=== PATIENT | female | born 1940 | race Caucasian/White ===

== ENCOUNTER → 2017-04-19 | Day surgery (SDC) | payer MEDICARE, OTHER ==
[~2017-04-19] VITALS: Ht 160 cm; Wt 67.1 kg
[~2017-04-19] MED LIST: ASPIRIN LITE C325 MG PO; ATIVAN0.5 MG PO; CITALOPRAM HYDR40 MG PO; Carafate1 GM PO; ESOMEPRAZOLE MA40 M1 PO; HYDROCHLOROTHIA25 M1 PO; METFORMIN HCL500 MG PO; OGEN PO; PHARMASSURE FO0.8 MG PO; POTASSIUM CHLO10 ME5 PO; PRAVASTATIN SOD40 MG PO; REMERON15 M2 PO; VITAMIN C500 M1 PO; VITAMIN D32000 UNIT PO
--- NOTE | ~2017-04-19 | O ---
[place], [place] OPERATIVE NOTE NAME: ADINA GARCIA UNIT #: [id number] ROOM: DOCTOR: SAUL RUTHERFORD MD BIRTHDATE: [birth year] DOS: 04/19/2017 PREOPERATIVE DIAGNOSIS: Cataract, left eye. POSTOPERATIVE DIAGNOSIS: Cataract, left eye. OPERATION: Extracapsular cataract extraction by phacoemulsification with posterior chamber intraocular lens implantation, left eye. ANESTHESIA: Monitored standby. OPERATIVE FINDINGS AND PROCEDURE: 2% Xylocaine topical anesthetic gel was applied to the eye in the preop area. The patient was taken to the operating room and prepped and draped in the standard fashion for sterile intraocular surgery. A time out procedure was performed verifying correct patient, correct site and corrects lens with Bernadette Rutherford M.D. The operating microscope was swung into position and the lid speculum was inserted. The eye was inspected and there was found to be a large 3-4 mm central corneal epithelial abrasion. Using a Nohemy paracentesis blade, a paracentesis was made through clear cornea. Viscoelastic was used to fill the anterior chamber. Using a metal keratome a 2.4 mm self-sealing clear corneal cataract incision was made temporally at the limbus. Using a pre-bent 25 gauge cystotome needle, a standard continuous curvilinear capsulorrhexis was performed. The anterior capsule was removed with forceps. The lens nucleus was hydrodissected and phacoemulsified in the posterior chamber. Cortical material was removed with the irrigation aspiration hand piece and the posterior capsule was then polished with a curet under irrigation. The posterior chamber and capsular bag were filled with viscoelastic. A posterior chamber intraocular lens manufactured by: [employer], Model #[id number], and 19.5 diopters in strength were then inserted into the posterior chamber and within the capsular bag using the lens cartridge and injector system. Viscoelastic was removed using the irrigation aspiration handpiece. The anterior chamber was filled with balanced salt solution through the paracentesis. Both the paracentesis site and cataract incisions were hydrated with BSS and verified to be water-tight and self-sealing. Cefuroxime 1 mg/0.1 mL was injected into the anterior chamber through the paracentesis site. The incision checked to be water-tight using a Weck-Jackelyn sponge. The integrity of the cataract wound and ocular tension were checked. The lid speculum and drapes were removed. Maxitrol ointment was applied to the eye. A pressure patch and eye shield were taped over the eye. The patient was transported from the operating room to the recovery room in satisfactory condition [place], [place] OPERATIVE NOTE NAME: ADINA GARCIA UNIT #: [id number] ROOM: DOCTOR: SAUL RUTHERFORD MD BIRTHDATE: [birth year] SAUL RUTHERFORD MD CM:OPRECORD:OPERATIVE NOTE [id number] SAUL RUTHERFORD MD 04/19/17 1259 interface
[2017-04-19 07:17] VITALS: BP 176/56
[2017-04-19 08:30] VITALS: BP 138/66
[2017-04-19 08:45] VITALS: BP 145/60
[2017-04-19 08:58] VITALS: BP 164/72
== END | disposition home or self-care (01) ==
LOC: SDC 03-16 09:30
DX: H26.9 Unspecified cataract (principal); I10 Essential (primary) hypertension; E78.00 Pure hypercholesterolemia, unspecified; E11.9 Type 2 diabetes mellitus without complications; F32.9 Major depressive disorder, single episode, unspecified; Z87.81 Personal history of (healed) traumatic fracture; K21.9 Gastro-esophageal reflux disease without esophagitis; F41.9 Anxiety disorder, unspecified; Z87.891 Personal history of nicotine dependence; Z90.710 Acquired absence of both cervix and uterus; Z98.890 Other specified postprocedural states; Z82.49 Family history of ischemic heart disease and other diseases of the circulatory system

== ENCOUNTER → 2017-04-25 | Outpatient (CLI) | payer MEDICARE, OTHER ==
[2017-04-25 09:20] LABS: BASO % 0.5 % (0.0-1.0); EOS # 0.2 10*3/uL (0.0-0.4); EOS % 2.7 % (1.0-4.0); HEMATOCRIT 35.9 % (37.0-47.0); HEMOGLOBIN 11.2 g/dl (12.0-16.0); LYMPH # 2.1 10*3/uL (1.3-4.4); LYMPH % 27.9 % (27.0-41.0); MEAN CELL VOLUME 85.3 fl (81.0-99.0); MEAN CORPUSCULAR HGB 26.6 pg (27.0-31.0); MEAN CORPUSCULAR HGB CONC 31.2 g/dl (33.0-37.0); MEAN PLATELET VOLUME 10.3 fl (9.6-12.3); MONO # 0.6 10*3/uL (0.1-1.0); MONO % 7.8 % (3.0-9.0); NEUT # 4.7 10*3/uL (2.3-7.9); NEUT % 60.8 % (47.0-73.0); PLATELET COUNT AUTOMATED 331 10*3/uL (130-400); RED BLOOD COUNT 4.21 10*6/uL (4.10-5.10); RED CELL DISTRI WIDTH 14.9 % (0-14.5); WHITE BLOOD COUNT 7.7 10*3/uL (4.8-10.8)
[2017-04-26 07:06] LABS: RHEUMATOID ARTHRITIS FACTOR <10.0 IU/mL (0.0-13.9)
[2017-04-26 10:09] LABS: ANTI-RNP ANTIBODIES <0.2 AI (0.0-0.9); ANTI-SMITH ANTIBODIES <0.2 AI (0.0-0.9)
[2017-04-26 14:11] LABS: LYME AB/TOTAL IMMUNOGLOBULINS <0.91 ISR (0.00-0.90)
[2017-04-27 00:09] LABS: PTT-LA 36.2 sec (0.0-51.9)
[2017-04-27 11:07] LABS: LUPUS REFLEX INTERPRETATION Comment: (.)
== END ==
LOC: LAB 08:49
PROVIDERS: Orthopaedic Surgery
DX: E53.8 Deficiency of other specified B group vitamins (principal); M25.50 Pain in unspecified joint

== ENCOUNTER → 2017-06-21 | Day surgery (SDC) | payer MEDICARE, OTHER ==
[~2017-06-21] VITALS: Ht 160 cm; Wt 63.5 kg
[~2017-06-21] MED LIST changes: +NEURONTIN300 MG PO
--- NOTE | ~2017-06-21 | O ---
[place], [place] OPERATIVE NOTE NAME: ADINA GARCIA UNIT #: [id number] ROOM: DOCTOR: SAUL RUTHERFORD MD BIRTHDATE: [birth year] DOS: 06/21/2017 PREOPERATIVE DIAGNOSIS: Cataract, right eye. POSTOPERATIVE DIAGNOSIS: Cataract, right eye. OPERATION: Extracapsular cataract extraction by phacoemulsification with posterior chamber intraocular lens implantation, right eye. ANESTHESIA: Monitored standby. OPERATIVE FINDINGS AND PROCEDURE: 2% Xylocaine topical anesthetic gel was applied to the eye in the preop area. The patient was taken to the operating room and prepped and draped in the standard fashion for sterile intraocular surgery. A time out procedure was performed verifying correct patient, correct site and corrects lens with Bernadette Rutherford M.D. The operating microscope was swung into position and the lid speculum was inserted. Using a Nohemy paracentesis blade, a paracentesis was made through clear cornea. Viscoelastic was used to fill the anterior chamber. Using a metal keratome a 2.4 mm self-sealing clear corneal cataract incision was made temporally at the limbus. Using a pre-bent 25 gauge cystotome needle, a standard continuous curvilinear capsulorrhexis was performed. The anterior capsule was removed with forceps. The lens nucleus was hydrodissected and phacoemulsified in the posterior chamber. Cortical material was removed with the irrigation aspiration hand piece and the posterior capsule was then polished with a curet under irrigation. The posterior chamber and capsular bag were filled with viscoelastic. A posterior chamber intraocular lens manufactured by: [employer], Model #[id number] and 17.0 diopters in strength were then inserted into the posterior chamber and within the capsular bag using the lens cartridge and injector system. Viscoelastic was removed using the irrigation aspiration handpiece. The anterior chamber was filled with balanced salt solution through the paracentesis. Both the paracentesis site and cataract incisions were hydrated with BSS and verified to be water-tight and self-sealing. Cefuroxime 1 mg/0.1 mL was injected into the anterior chamber through the paracentesis site. The incision checked to be water-tight using a Weck-Jackelyn sponge. The integrity of the cataract wound and ocular tension were checked. Lid speculum and drapes were removed. The patient was transferred from the operating room to the recovery room in satisfactory condition. [place], [place] OPERATIVE NOTE NAME: ADINA GARCIA UNIT #: [id number] ROOM: DOCTOR: KRISH MONAHAN,SAUL BIRTHDATE: [birth year] SAUL RUTHERFORD MD CM:OPRECORD:OPERATIVE NOTE [id number] SAUL RUTHERFORD MD 06/21/17 1201 interface
[2017-06-21 07:00] VITALS: BP 139/55
[2017-06-21 08:31] VITALS: BP 146/54
[2017-06-21 08:45] VITALS: BP 130/57
[2017-06-21 09:00] VITALS: BP 145/64
== END | disposition home or self-care (01) ==
LOC: SDC 06-14 08:45
DX: E11.36 Type 2 diabetes mellitus with diabetic cataract (principal); I10 Essential (primary) hypertension; K21.9 Gastro-esophageal reflux disease without esophagitis; F41.9 Anxiety disorder, unspecified; F32.9 Major depressive disorder, single episode, unspecified; Z90.710 Acquired absence of both cervix and uterus; Z98.890 Other specified postprocedural states; Z82.49 Family history of ischemic heart disease and other diseases of the circulatory system; Z87.891 Personal history of nicotine dependence; Z88.5 Allergy status to narcotic agent; Z88.8 Allergy status to other drugs, medicaments and biological substances

== ENCOUNTER 2020-03-07 13:33 | Emergency (ER) | payer MEDICARE, OTHER ==
[~2020-03-07] VITALS: Ht 160 cm; Wt 68.0 kg
[2020-03-07] MEDS ORDERED: AUGMENTIN 875875 MG PO (16:04)
== END 2020-03-07 16:24 | disposition home or self-care (01) ==
LOC: ED 13:33
DX: Z88.5 Allergy status to narcotic agent (principal); Z79.899 Other long term (current) drug therapy; Z79.84 Long term (current) use of oral hypoglycemic drugs; S02.2XXA Fracture of nasal bones, initial encounter for closed fracture; S05.12XA Contusion of eyeball and orbital tissues, left eye, initial encounter; I10 Essential (primary) hypertension; E11.9 Type 2 diabetes mellitus without complications; K21.9 Gastro-esophageal reflux disease without esophagitis; F32.9 Major depressive disorder, single episode, unspecified; Z79.82 Long term (current) use of aspirin; W19.XXXA Unspecified fall, initial encounter; Y93.89 Activity, other specified; Y92.89 Other specified places as the place of occurrence of the external cause; Y99.8 Other external cause status

== ENCOUNTER 2020-05-22 12:43 | Inpatient (IN) | payer MEDICARE, OTHER ==
[~2020-05-22] VITALS: Ht 160 cm; Wt 68.9 kg
[~2020-05-22 12:43] MED LIST changes: +AUGMENTIN 875875 MG PO; -METFORMIN HCL500 MG PO; +METFORMIN850 MG PO
[2020-05-22 12:47] VITALS: BP 115/67
[2020-05-22 14:07] LABS: BASO # 0.1 10*3/uL (0.0-0.1); BASO % 0.3 % (0.0-1.0); EOS # 0.2 10*3/uL (0.0-0.4); EOS % 0.9 % (1.0-4.0); HEMATOCRIT 40.8 % (37.0-47.0); LYMPH # 1.8 10*3/uL (1.3-4.4); MEAN CELL VOLUME 94.7 fl (81.0-99.0); MEAN CORPUSCULAR HGB 29.7 pg (27.0-31.0); MEAN CORPUSCULAR HGB CONC 31.4 g/dl (33.0-37.0); MEAN PLATELET VOLUME 10.3 fl (9.6-12.3); MONO # 1.1 10*3/uL (0.1-1.0); MONO % 6.6 % (3.0-9.0); NEUT # 13.3 10*3/uL (2.3-7.9); NEUT % 80.4 % (47.0-73.0); PLATELET COUNT AUTOMATED 242 10*3/uL (130-400); RED BLOOD COUNT 4.31 10*6/uL (4.10-5.10); WHITE BLOOD COUNT 16.6 10*3/uL (4.8-10.8)
[2020-05-22 14:17] LABS: ACT PARTIAL THROMBO TIME 27.9 SECONDS (20.0-32.1); INTERNATIONAL NORM RATIO 1.1 (2.0-3.5)
[2020-05-22 14:24] LABS: ALBUMIN 3.6 gm/dl (3.1-4.5); ALKALINE PHOSPHATASE 84 U/L (45-117); BUN 11 mg/dl (7-24); CHLORIDE 100 mmol/L (98-107); CREATININE 0.79 mg/dL (0.55-1.02); LIPASE 88 U/L (73-393); SGOT/AST 18 IU/L (3-35); SGPT/ALT 23 U/L (12-78); SODIUM 136 mmol/L (136-145); TOTAL PROTEIN 7.3 gm/dL (6.4-8.2)
[2020-05-22 14:31] LABS: TROPONIN I < 0.015 ng/ml (<0.045)
[2020-05-22 15:34] VITALS: BP 119/42
[2020-05-22] MEDS ORDERED: MYRBETRIQ50 M1 PO (17:09)
[2020-05-22] MEDS ORDERED: JANUVIA100 MG PO (17:10)
[2020-05-22] MEDS ORDERED: ACTIGALL300 MG PO (17:10)
[2020-05-22 17:13] LABS: BILIRUBIN NEGATIVE; BLOOD NEGATIVE (NEGATIVE); CLARITY CLEAR (CLEAR); COLOR YELLOW (YELLOW); GLUCOSE TRACE; KETONE NEGATIVE; SPECIFIC GRAVITY 1.015 (1.001-1.030)
[2020-05-22 17:14] LABS: LEUKO ESTERASE 1+ (NEGATIVE); NITRITE NEGATIVE (NEGATIVE)
[2020-05-22 17:31] LABS: BACTERIA 1+; WBC 16-20 wbc/hpf (0-5)
[2020-05-22 18:00] VITALS: BP 140/54
[2020-05-22 20:00] VITALS: BP 119/55
[2020-05-23] VITALS (10 sets, daily range): BP systolic 108–179; BP diastolic 33–64
[2020-05-23 06:05] LABS: BASO % 0.2 % (0.0-1.0); EOS # 0.2 10*3/uL (0.0-0.4); EOS % 1.4 % (1.0-4.0); HEMATOCRIT 30.8 % (37.0-47.0); LYMPH # 2.5 10*3/uL (1.3-4.4); LYMPH % 22.9 % (27.0-41.0); MEAN CELL VOLUME 92.2 fl (81.0-99.0); MEAN CORPUSCULAR HGB 29.6 pg (27.0-31.0); MEAN CORPUSCULAR HGB CONC 32.1 g/dl (33.0-37.0); MEAN PLATELET VOLUME 10.4 fl (9.6-12.3); MONO # 1.1 10*3/uL (0.1-1.0); MONO % 10.2 % (3.0-9.0); NEUT % 64.8 % (47.0-73.0); PLATELET COUNT AUTOMATED 227 10*3/uL (130-400); RED BLOOD COUNT 3.34 10*6/uL (4.10-5.10); RED CELL DISTRI WIDTH 14.5 % (0-14.5); WHITE BLOOD COUNT 10.9 10*3/uL (4.8-10.8)
[2020-05-23 06:16] LABS: ALBUMIN 3.1 gm/dl (3.1-4.5); BUN 15 mg/dl (7-24); CHLORIDE 98 mmol/L (98-107); CHOLESTEROL 156 mg/dL (<200); CREATININE 0.88 mg/dL (0.55-1.02); POTASSIUM 3.5 mmol/L (3.5-5.1); SGOT/AST 19 IU/L (3-35); SGPT/ALT 21 U/L (12-78); SODIUM 132 mmol/L (136-145); TOTAL PROTEIN 6.3 gm/dL (6.4-8.2); TRIGLYCERIDES 104 mg/dl (<150); VLDL CHOLESTEROL 21 mg/dL (6-40)
[2020-05-23 06:23] LABS: ALKALINE PHOSPHATASE 71 U/L (45-117); FREE T4 0.77 ng/dl (0.76-1.46); HDL CHOLESTEROL 67 mg/dl (40-60); LDL CHOLESTEROL 68 mg/dL (9-159)
[2020-05-23 07:25] LABS: VITAMIN D, 25-HYDROXY 44.2 ng/mL (30-100)
[2020-05-24] VITALS: BP 123/52
[2020-05-24 06:10] LABS: BASO % 0.1 % (0.0-1.0); EOS % 0.1 % (1.0-4.0); HEMATOCRIT 23.5 % (37.0-47.0); LYMPH # 1.6 10*3/uL (1.3-4.4); LYMPH % 12.2 % (27.0-41.0); MEAN CELL VOLUME 91.1 fl (81.0-99.0); MEAN CORPUSCULAR HGB 29.5 pg (27.0-31.0); MEAN CORPUSCULAR HGB CONC 32.3 g/dl (33.0-37.0); MEAN PLATELET VOLUME 10.4 fl (9.6-12.3); MONO # 1.2 10*3/uL (0.1-1.0); MONO % 8.9 % (3.0-9.0); NEUT # 10.2 10*3/uL (2.3-7.9); NEUT % 78.2 % (47.0-73.0); PLATELET COUNT AUTOMATED 170 10*3/uL (130-400); RED BLOOD COUNT 2.58 10*6/uL (4.10-5.10); RED CELL DISTRI WIDTH 13.9 % (0-14.5)
[2020-05-24 06:24] LABS: ALBUMIN 2.8 gm/dl (3.1-4.5); ALKALINE PHOSPHATASE 57 U/L (45-117); BUN 14 mg/dl (7-24); CHLORIDE 93 mmol/L (98-107); CREATININE 0.73 mg/dL (0.55-1.02); POTASSIUM 3.8 mmol/L (3.5-5.1); SGOT/AST 18 IU/L (3-35); SGPT/ALT 19 U/L (12-78); SODIUM 128 mmol/L (136-145)
[2020-05-24 08:00] VITALS: BP 140/63
[2020-05-24 12:00] VITALS: BP 127/41
[2020-05-24 16:00] VITALS: BP 139/54
[2020-05-24 20:00] VITALS: BP 133/57
[2020-05-25] VITALS: BP 123/43
[2020-05-25 07:07] LABS: BASO % 0.4 % (0.0-1.0); EOS # 0.3 10*3/uL (0.0-0.4); EOS % 2.6 % (1.0-4.0); LYMPH # 2.3 10*3/uL (1.3-4.4); LYMPH % 19.7 % (27.0-41.0); MEAN CORPUSCULAR HGB 29.1 pg (27.0-31.0); MEAN CORPUSCULAR HGB CONC 31.7 g/dl (33.0-37.0); MEAN PLATELET VOLUME 10.7 fl (9.6-12.3); MONO % 8.9 % (3.0-9.0); NEUT # 7.7 10*3/uL (2.3-7.9); NEUT % 67.4 % (47.0-73.0); PLATELET COUNT AUTOMATED 184 10*3/uL (130-400); RED BLOOD COUNT 2.61 10*6/uL (4.10-5.10); WHITE BLOOD COUNT 11.4 10*3/uL (4.8-10.8)
[2020-05-25 07:09] LABS: ALBUMIN 2.7 gm/dl (3.1-4.5); ALKALINE PHOSPHATASE 60 U/L (45-117); BUN 12 mg/dl (7-24); CHLORIDE 94 mmol/L (98-107); CREATININE 0.61 mg/dL (0.55-1.02); POTASSIUM 3.3 mmol/L (3.5-5.1); SGOT/AST 15 IU/L (3-35); SGPT/ALT 15 U/L (12-78); SODIUM 132 mmol/L (136-145); TOTAL PROTEIN 6.4 gm/dL (6.4-8.2)
[2020-05-25 08:00] VITALS: BP 120/50
[2020-05-25 12:00] VITALS: BP 133/88
[2020-05-25 16:00] VITALS: BP 153/69
[2020-05-25 20:00] VITALS: BP 127/47
[2020-05-26 07:38] LABS: BASO % 0.2 % (0.0-1.0); EOS # 0.4 10*3/uL (0.0-0.4); EOS % 3.8 % (1.0-4.0); HEMATOCRIT 22.2 % (37.0-47.0); LYMPH # 1.5 10*3/uL (1.3-4.4); LYMPH % 16.8 % (27.0-41.0); MEAN CELL VOLUME 90.6 fl (81.0-99.0); MEAN CORPUSCULAR HGB 29.8 pg (27.0-31.0); MEAN CORPUSCULAR HGB CONC 32.9 g/dl (33.0-37.0); MEAN PLATELET VOLUME 9.9 fl (9.6-12.3); MONO # 0.8 10*3/uL (0.1-1.0); MONO % 8.2 % (3.0-9.0); NEUT # 6.4 10*3/uL (2.3-7.9); NEUT % 70.5 % (47.0-73.0); NUCLEATED RED BLOOD CELL 0.4 % (0.0-0.0); PLATELET COUNT AUTOMATED 212 10*3/uL (130-400); RED BLOOD COUNT 2.45 10*6/uL (4.10-5.10); RED CELL DISTRI WIDTH 14.4 % (0-14.5); WHITE BLOOD COUNT 9.1 10*3/uL (4.8-10.8)
[2020-05-26 07:51] LABS: BUN 8 mg/dl (7-24); CHLORIDE 96 mmol/L (98-107); CREATININE 0.52 mg/dL (0.55-1.02); POTASSIUM 3.2 mmol/L (3.5-5.1); SODIUM 133 mmol/L (136-145)
[2020-05-26 08:00] VITALS: BP 133/43
[2020-05-26 12:00] VITALS: BP 127/43
[2020-05-26 16:00] VITALS: BP 140/52
[2020-05-26 20:00] VITALS: BP 137/59
[2020-05-27] VITALS: BP 158/61
[2020-05-27 07:15] LABS: BASO % 0.2 % (0.0-1.0); EOS # 0.5 10*3/uL (0.0-0.4); EOS % 5.2 % (1.0-4.0); HEMATOCRIT 24.5 % (37.0-47.0); LYMPH # 1.5 10*3/uL (1.3-4.4); LYMPH % 16.2 % (27.0-41.0); MEAN CELL VOLUME 93.2 fl (81.0-99.0); MEAN CORPUSCULAR HGB 29.3 pg (27.0-31.0); MEAN CORPUSCULAR HGB CONC 31.4 g/dl (33.0-37.0); MEAN PLATELET VOLUME 9.5 fl (9.6-12.3); MONO # 0.9 10*3/uL (0.1-1.0); MONO % 10.2 % (3.0-9.0); NEUT # 6.2 10*3/uL (2.3-7.9); NEUT % 67.4 % (47.0-73.0); NUCLEATED RED BLOOD CELL 0.1 10*3/uL (0.0-0.0); NUCLEATED RED BLOOD CELL 0.5 % (0.0-0.0); PLATELET COUNT AUTOMATED 240 10*3/uL (130-400); RED BLOOD COUNT 2.63 10*6/uL (4.10-5.10); RED CELL DISTRI WIDTH 14.6 % (0-14.5); WHITE BLOOD COUNT 9.2 10*3/uL (4.8-10.8)
[2020-05-27 08:00] VITALS: BP 150/56
[2020-05-27] MEDS ORDERED: ASPIRIN ADULT L81 M2 PO (12:51)
[2020-05-27] MEDS ORDERED: NORCO 5-325 TA1 EACH PO (12:59)
== END 2020-05-27 16:29 | disposition other institution (70) | DRG 480 ==
LOC: ED 12:43 → EDHOLD 16:21 → 5E 16:21
PROVIDERS: Internal Medicine; Nurse Practitioner Family; Student in an Organized Health Care Education/Training Program; ADMIT Emergency Medicine; ATTEND Emergency Medicine
PROC: 0QH604Z Insertion of Internal Fixation Device into Right Upper Femur, Open Approach (ICD-10-PCS; principal; 2020-05-23)
DX: S72.141A Displaced intertrochanteric fracture of right femur, initial encounter for closed fracture (principal); E43 Unspecified severe protein-calorie malnutrition; E87.2 Acidosis; R65.10 Systemic inflammatory response syndrome (SIRS) of non-infectious origin without acute organ dysfunction; S50.01XA Contusion of right elbow, initial encounter; S60.222A Contusion of left hand, initial encounter; K21.9 Gastro-esophageal reflux disease without esophagitis; E11.65 Type 2 diabetes mellitus with hyperglycemia; Z20.828 Contact with and (suspected) exposure to other viral communicable diseases; E11.42 Type 2 diabetes mellitus with diabetic polyneuropathy; F41.9 Anxiety disorder, unspecified; F32.9 Major depressive disorder, single episode, unspecified; D72.829 Elevated white blood cell count, unspecified; S50.311A Abrasion of right elbow, initial encounter; S60.512A Abrasion of left hand, initial encounter; W18.39XA Other fall on same level, initial encounter; Y93.89 Activity, other specified; Y99.8 Other external cause status; Z68.26 Body mass index [BMI] 26.0-26.9, adult; Z88.6 Allergy status to analgesic agent; Z90.710 Acquired absence of both cervix and uterus; Z82.49 Family history of ischemic heart disease and other diseases of the circulatory system; Z98.49 Cataract extraction status, unspecified eye; Y92.098 Other place in other non-institutional residence as the place of occurrence of the external cause

== ENCOUNTER → 2020-06-05 | Outpatient (CLI) | payer MEDICARE, OTHER ==
[~2020-06-05] MED LIST changes: +ACTIGALL300 MG PO; +ASPIRIN ADULT L81 M2 PO; +JANUVIA100 MG PO; +MYRBETRIQ50 M1 PO; +NORCO 5-325 TA1 EACH PO
== END | disposition home or self-care (01) ==
LOC: ORTHO 01:00
PROVIDERS: ATTEND Psychiatry & Neurology Psychiatry
DX: S72.141D Displaced intertrochanteric fracture of right femur, subsequent encounter for closed fracture with routine healing (principal); X58.XXXD Exposure to other specified factors, subsequent encounter; Z98.890 Other specified postprocedural states

== ENCOUNTER → 2020-07-20 | Outpatient (CLI) | payer MEDICARE, OTHER | END | disposition home or self-care (01) | LOC: RAD 12:42 | PROVIDERS: ATTEND Orthopaedic Surgery | DX: S72.141D Displaced intertrochanteric fracture of right femur, subsequent encounter for closed fracture with routine healing (principal); X58.XXXD Exposure to other specified factors, subsequent encounter ==

== ENCOUNTER 2020-12-21 13:49 | Emergency (ER) | payer MEDICARE, OTHER ==
[~2020-12-21] VITALS: Ht 160 cm; Wt 68.0 kg
== END 2020-12-21 16:54 | disposition home or self-care (01) ==
LOC: ED 13:49
DX: S51.012A Laceration without foreign body of left elbow, initial encounter (principal); Z88.5 Allergy status to narcotic agent; Z79.82 Long term (current) use of aspirin; Z79.899 Other long term (current) drug therapy; Z90.711 Acquired absence of uterus with remaining cervical stump; Z90.49 Acquired absence of other specified parts of digestive tract; Z98.890 Other specified postprocedural states; W22.8XXA Striking against or struck by other objects, initial encounter; Y93.89 Activity, other specified; Y92.89 Other specified places as the place of occurrence of the external cause; Y99.8 Other external cause status

== ENCOUNTER → 2021-03-29 | Outpatient (CLI) | payer MEDICARE, OTHER | END | disposition home or self-care (01) | LOC: RAD 16:09 | PROVIDERS: ATTEND Family Medicine | DX: J44.9 Chronic obstructive pulmonary disease, unspecified (principal); J98.4 Other disorders of lung ==

== ENCOUNTER 2024-07-24 15:07 | Inpatient (IN) | payer MEDICARE, OTHER ==
[~2024-07-24] VITALS: Wt 58.7 kg
[2024-07-24 15:12] VITALS: BP 149/63
[2024-07-24] MEDS ORDERED: Lactated Ringer's Solution 1,000 ML IV SCH (16:25)
[2024-07-24 17:11] LABS: ALKALINE PHOSPHATASE 104 U/L (46-116); BUN 17 mg/dl (9-23); CHLORIDE 96 mmol/L (98-107); POTASSIUM 4.4 mmol/L (3.4-5.1); SGPT/ALT 15 U/L (5-49); TOTAL PROTEIN 7.1 gm/dL (6.0-8.0)
[2024-07-24 17:24] LABS: BASO # 0.1 10*3/uL (0.0-0.1); BASO % 0.4 % (0.0-1.0); EOS # 0.3 10*3/uL (0.0-0.4); HEMATOCRIT 44.6 % (37.0-47.0); MEAN CELL VOLUME 88.1 fl (81.0-99.0); MEAN CORPUSCULAR HGB 29.1 pg (27.0-31.0); MEAN PLATELET VOLUME 8.6 fl (9.6-12.3); MONO # 1.5 10*3/uL (0.1-1.0); MONO % 10.2 % (3.0-9.0); NEUT % 70.4 % (47.0-73.0); PLATELET COUNT AUTOMATED 380 10*3/uL (130-400); RED BLOOD COUNT 5.06 10*6/uL (4.10-5.10); RED CELL DISTRI WIDTH 15.1 % (0-14.5); WHITE BLOOD COUNT 14.2 10*3/uL (4.8-10.8)
[2024-07-24 17:33] LABS: BILIRUBIN Negative (Negative); BLOOD 1+ (Negative); CLARITY Turbid (Clear); COLOR Yellow (Yellow); GLUCOSE Negative (Negative); KETONE Trace (Negative); LEUKO ESTERASE 3+ (Negative); NITRITE Positive (Negative)
[2024-07-24 17:48] LABS: BACTERIA 4+; WBC TNTC wbc/hpf (0-5)
[2024-07-24] MEDS ORDERED: Ceftriaxone Sodium 1 GM/10 ML SYR IV ONE (18:05)
[2024-07-24] MEDS ORDERED: DULOXETINE HCL60 MG PO (18:07)
[2024-07-24] MEDS ORDERED: DULOXETINE HCL30 MG PO (18:07)
[2024-07-24] MEDS ORDERED: GEMTESA75 MG PO (18:08)
[2024-07-24] MEDS ORDERED: FLUOCINOLONE AC OT (18:09)
[2024-07-24] MEDS ORDERED: MECLIZINE HCL25 M2 PO (18:11)
[2024-07-24] MEDS ORDERED: MELATONIN5 M7 PO (18:12)
[2024-07-24] MEDS ORDERED: VITAMIN C500 M8 PO (18:13)
[2024-07-24] MEDS ORDERED: MELOXICAM7.5 MG PO (18:13)
[2024-07-24] MEDS ORDERED: METOPROLOL25 MG PO (18:13)
[2024-07-24] MEDS ORDERED: NATURE'S BLEND F1 MG PO (18:13)
[2024-07-24] MEDS ORDERED: COLACE100 MG PO (18:15)
[2024-07-24] MEDS ORDERED: MILK OF MA400 MG/51 PO (18:15)
[2024-07-24] MEDS ORDERED: ACETAMINOPHEN 325 MG TAB PO PRN (19:45)
[2024-07-24] MEDS ORDERED: SODIUM CHLORIDE 0.9% 1,000 ML IV ONE (19:45)
[2024-07-24] MEDS ORDERED: Ondansetron Hydrochloride 4 MG/2 ML VIAL IV PRN (19:45)
[2024-07-24] MEDS ORDERED: Magnesium Hydroxide 30 ML UDC PO PRN (19:45)
[2024-07-24 21:03] VITALS: BP 175/68
[2024-07-24] MEDS ORDERED: Melatonin 5 MG TABLET PO PRN (21:50)
[2024-07-24] MEDS ORDERED: Metoprolol Tartrate 25 MG TAB PO SCH (22:00)
[2024-07-24 23:18] VITALS: BP 155/63
[2024-07-25 01:00] VITALS: BP 137/97
[2024-07-25] MEDS ORDERED: Piperacillin Sodium/Tazobact 50 ML IV SCH ×2 (02:13→08:00)
[2024-07-25] MEDS ORDERED: FOAM BANDAGE HEEL T ONE (02:41)
[2024-07-25] MEDS ORDERED: Pantoprazole Sodium 40 MG TAB PO SCH (06:00)
[2024-07-25 06:40] LABS: BASO # 0.1 10*3/uL (0.0-0.1); BASO % 0.5 % (0.0-1.0); EOS # 0.4 10*3/uL (0.0-0.4); HEMATOCRIT 37.8 % (37.0-47.0); MEAN CELL VOLUME 90.2 fl (81.0-99.0); MEAN CORPUSCULAR HGB 28.9 pg (27.0-31.0); MEAN PLATELET VOLUME 9.5 fl (9.6-12.3); MONO # 1.2 10*3/uL (0.1-1.0); MONO % 10.6 % (3.0-9.0); NEUT # 7.9 10*3/uL (2.3-7.9); NEUT % 68.3 % (47.0-73.0); PLATELET COUNT AUTOMATED 376 10*3/uL (130-400); RED BLOOD COUNT 4.19 10*6/uL (4.10-5.10); RED CELL DISTRI WIDTH 14.6 % (0-14.5); WHITE BLOOD COUNT 11.6 10*3/uL (4.8-10.8)
[2024-07-25 07:37] LABS: ALKALINE PHOSPHATASE 90 U/L (46-116); BUN 14 mg/dl (9-23); CHLORIDE 95 mmol/L (98-107); POTASSIUM 3.9 mmol/L (3.4-5.1); SGPT/ALT 15 U/L (5-49); TOTAL PROTEIN 6.4 gm/dL (6.0-8.0)
[2024-07-25 08:00] VITALS: BP 175/83
[2024-07-25] MEDS ORDERED: Enoxaparin Sodium 40 MG/0.4 ML SYR SC SCH (10:00)
[2024-07-25] MEDS ORDERED: FLUOCINOLONE OT SCH (10:00)
[2024-07-25] MEDS ORDERED: ATORVASTATIN CALCIUM 10 MG TAB PO SCH (10:00)
[2024-07-25] MEDS ORDERED: Duloxetine Hydrochloride 60 MG CAP PO SCH (10:00)
[2024-07-25 12:00] VITALS: BP 198/94
[2024-07-25] MEDS ORDERED: Ceftriaxone Sodium 1 GM,IV 1 EA in SYRINGE INFUSION 10 ML IV SCH (14:00)
[2024-07-25 15:30] VITALS: BP 152/80
[2024-07-25 16:00] VITALS: BP 164/84
[2024-07-25] MEDS ORDERED: Lactated Ringer's Solution 1,000 ML IV SCH (16:45)
[2024-07-25 20:00] VITALS: BP 184/93
[2024-07-25] MEDS ORDERED: MAGNESIUM SULFATE 50 ML IV ONE (20:00)
[2024-07-26] VITALS (9 sets, daily range): BP systolic 111–246; BP diastolic 42–110
[2024-07-26] MEDS ORDERED: Labetalol Hydrochloride 20 MG/4 ML SYR IV ONE (00:20)
[2024-07-26] MEDS ORDERED: LISINOPRIL 5 MG TAB PO SCH (05:00)
[2024-07-26 05:27] LABS: BUN 5 mg/dl (9-23); CHLORIDE 93 mmol/L (98-107); POTASSIUM 3.2 mmol/L (3.4-5.1)
[2024-07-26 06:12] LABS: BASO % 0.3 % (0.0-1.0); EOS # 0.2 10*3/uL (0.0-0.4); EOS % 2.8 % (1.0-4.0); HEMATOCRIT 38.7 % (37.0-47.0); MEAN CORPUSCULAR HGB 28.9 pg (27.0-31.0); MEAN CORPUSCULAR HGB CONC 32.8 g/dl (33.0-37.0); MEAN PLATELET VOLUME 9.6 fl (9.6-12.3); MONO # 0.9 10*3/uL (0.1-1.0); MONO % 9.9 % (3.0-9.0); NEUT % 69.7 % (47.0-73.0); PLATELET COUNT AUTOMATED 330 10*3/uL (130-400); RED CELL DISTRI WIDTH 14.2 % (0-14.5); WHITE BLOOD COUNT 8.7 10*3/uL (4.8-10.8)
[2024-07-26] MEDS ORDERED: hydrALAZINE hydrochloride 20 MG/ML VIAL IV ONE (06:35)
[2024-07-26] MEDS ORDERED: POTASSIUM CHLORIDE 20 MEQ TAB PO ONE (08:30)
[2024-07-26] MEDS ORDERED: MAGNESIUM SULFATE 50 ML IV ONE (08:30)
[2024-07-27] VITALS: BP 150/52
[2024-07-27 05:15] LABS: BUN 7 mg/dl (9-23); CHLORIDE 96 mmol/L (98-107); POTASSIUM 3.7 mmol/L (3.4-5.1)
[2024-07-27] MEDS ORDERED: SODIUM CHLORIDE 0.9% 500 ML IV ONE ×2 (08:05→08:46)
[2024-07-27] MEDS ORDERED: MAGNESIUM SULFATE 50 ML IV ONE (08:10)
[2024-07-27 09:07] VITALS: BP 144/66
[2024-07-27] MEDS ORDERED: Rivastigmine Tartrate 4.6 MG/24 HR PATCH T SCH (10:00)
[2024-07-27 12:00] VITALS: BP 180/68
[2024-07-27 16:00] VITALS: BP 168/62
[2024-07-27 20:00] VITALS: BP 158/93
[2024-07-27] MEDS ORDERED: NYSTATIN 15 GM BOT T SCH (22:00)
[2024-07-28] VITALS: BP 178/100
[2024-07-28 06:33] LABS: BASO % 0.4 % (0.0-1.0); EOS # 0.2 10*3/uL (0.0-0.4); EOS % 1.6 % (1.0-4.0); HEMATOCRIT 40.6 % (37.0-47.0); MEAN CORPUSCULAR HGB CONC 32.3 g/dl (33.0-37.0); MEAN PLATELET VOLUME 9.4 fl (9.6-12.3); MONO # 1.3 10*3/uL (0.1-1.0); NEUT # 8.7 10*3/uL (2.3-7.9); PLATELET COUNT AUTOMATED 294 10*3/uL (130-400); RED BLOOD COUNT 4.51 10*6/uL (4.10-5.10); RED CELL DISTRI WIDTH 14.1 % (0-14.5); WHITE BLOOD COUNT 11.4 10*3/uL (4.8-10.8)
[2024-07-28 06:54] LABS: CHLORIDE 97 mmol/L (98-107); POTASSIUM 3.1 mmol/L (3.4-5.1)
[2024-07-28 06:58] LABS: BUN < 5 mg/dl (9-23)
[2024-07-28] MEDS ORDERED: MAGNESIUM SULFATE 50 ML IV ONE (07:55)
[2024-07-28] MEDS ORDERED: POTASSIUM CHLORIDE 20 MEQ TAB PO ONE (07:55)
[2024-07-28 08:00] VITALS: BP 180/78
[2024-07-28] MEDS ORDERED: Menthol/Zinc Oxide 4 GM THIN T SCH (10:00)
[2024-07-28 12:00] VITALS: BP 175/76
[2024-07-28 16:00] VITALS: BP 140/92
[2024-07-28 20:00] VITALS: BP 171/81
[2024-07-29] VITALS: BP 173/70
[2024-07-29 05:25] LABS: BUN 7 mg/dl (9-23); CHLORIDE 95 mmol/L (98-107)
[2024-07-29 05:42] LABS: POTASSIUM 4.1 mmol/L (3.4-5.1)
[2024-07-29 06:16] LABS: BASO # 0.1 10*3/uL (0.0-0.1); BASO % 0.5 % (0.0-1.0); EOS # 0.4 10*3/uL (0.0-0.4); EOS % 4.1 % (1.0-4.0); HEMATOCRIT 41.5 % (37.0-47.0); MEAN CORPUSCULAR HGB 29.2 pg (27.0-31.0); MEAN PLATELET VOLUME 9.8 fl (9.6-12.3); MONO # 1.1 10*3/uL (0.1-1.0); MONO % 10.7 % (3.0-9.0); NEUT # 6.8 10*3/uL (2.3-7.9); NEUT % 68.9 % (47.0-73.0); PLATELET COUNT AUTOMATED 344 10*3/uL (130-400); RED BLOOD COUNT 4.56 10*6/uL (4.10-5.10); RED CELL DISTRI WIDTH 14.2 % (0-14.5); WHITE BLOOD COUNT 9.9 10*3/uL (4.8-10.8)
[2024-07-29 08:00] VITALS: BP 160/85
[2024-07-29 12:00] VITALS: BP 156/78
[2024-07-29] MEDS ORDERED: RIVASTIGMINE1 EACH T (13:04)
[2024-07-29] MEDS ORDERED: LISINOPRIL5 MG PO (13:04)
[2024-07-29] MEDS ORDERED: OMNICEF300 MG PO (13:04)
== END 2024-07-29 14:22 | DRG 871 ==
LOC: ED 15:07 → 4E 18:34 → EDHOLD 18:34 → 4E 21:54
PROVIDERS: Emergency Medicine; Internal Medicine; Student in an Organized Health Care Education/Training Program; ADMIT Internal Medicine; ATTEND Internal Medicine
DX: A41.9 Sepsis, unspecified organism (principal); G93.41 Metabolic encephalopathy; E87.1 Hypo-osmolality and hyponatremia; N30.01 Acute cystitis with hematuria; E87.20 Acidosis, unspecified; R65.20 Severe sepsis without septic shock; E11.42 Type 2 diabetes mellitus with diabetic polyneuropathy; I16.0 Hypertensive urgency; E86.0 Dehydration; Z66 Do not resuscitate; E87.6 Hypokalemia; E11.65 Type 2 diabetes mellitus with hyperglycemia; F33.41 Major depressive disorder, recurrent, in partial remission; F41.9 Anxiety disorder, unspecified; K21.9 Gastro-esophageal reflux disease without esophagitis; I10 Essential (primary) hypertension; E83.42 Hypomagnesemia; Z90.710 Acquired absence of both cervix and uterus; Z98.42 Cataract extraction status, left eye; Z98.41 Cataract extraction status, right eye; Z83.3 Family history of diabetes mellitus; Z82.49 Family history of ischemic heart disease and other diseases of the circulatory system; Z88.8 Allergy status to other drugs, medicaments and biological substances; Z79.899 Other long term (current) drug therapy

== ENCOUNTER 2024-08-06 18:27 | Emergency (ER) | payer MEDICARE, OTHER ==
[~2024-08-06] VITALS: Ht 160 cm; Wt 58.5 kg
[~2024-08-06 18:27] MED LIST changes: +COLACE100 MG PO; +DULOXETINE HCL30 MG PO; +DULOXETINE HCL60 MG PO; +FLUOCINOLONE AC OT; +GEMTESA75 MG PO; +LISINOPRIL5 MG PO; +MECLIZINE HCL25 M2 PO; +MELATONIN5 M7 PO; +MELOXICAM7.5 MG PO; +METOPROLOL25 MG PO; +MILK OF MA400 MG/51 PO; +NATURE'S BLEND F1 MG PO; +OMNICEF300 MG PO; +RIVASTIGMINE1 EACH T; +VITAMIN C500 M8 PO
== END 2024-08-06 21:31 | disposition home or self-care (01) ==
LOC: ED 18:27
DX: M25.511 Pain in right shoulder (principal); M25.571 Pain in right ankle and joints of right foot; I10 Essential (primary) hypertension; E11.9 Type 2 diabetes mellitus without complications; K21.9 Gastro-esophageal reflux disease without esophagitis; F41.9 Anxiety disorder, unspecified; F32.A Depression, unspecified; F03.90 Unspecified dementia, unspecified severity, without behavioral disturbance, psychotic disturbance, mood disturbance, and anxiety; Z88.5 Allergy status to narcotic agent; Z90.710 Acquired absence of both cervix and uterus; Z90.49 Acquired absence of other specified parts of digestive tract; Z98.890 Other specified postprocedural states; W19.XXXA Unspecified fall, initial encounter

== ENCOUNTER 2024-08-23 20:30 | Emergency (ER) | payer MEDICARE, OTHER ==
[~2024-08-23] VITALS: Ht 160 cm; Wt 62.3 kg
== END 2024-08-23 22:55 ==
LOC: ED 20:30
DX: M54.50 Low back pain, unspecified (principal); Z04.3 Encounter for examination and observation following other accident; R41.82 Altered mental status, unspecified; I10 Essential (primary) hypertension; E11.9 Type 2 diabetes mellitus without complications; K21.9 Gastro-esophageal reflux disease without esophagitis; F41.9 Anxiety disorder, unspecified; F32.A Depression, unspecified; F03.90 Unspecified dementia, unspecified severity, without behavioral disturbance, psychotic disturbance, mood disturbance, and anxiety; Z88.5 Allergy status to narcotic agent; Z90.710 Acquired absence of both cervix and uterus; Z90.49 Acquired absence of other specified parts of digestive tract; Z98.890 Other specified postprocedural states; W19.XXXA Unspecified fall, initial encounter